=== PATIENT | female | born 1955 | race Caucasian/White ===

== ENCOUNTER 2020-09-07 13:00 | Observation (INO) | payer MEDICARE ==
[~2020-09-07] VITALS: Ht 170.2 cm; Wt 68.7 kg
[2020-09-07] MEDS ORDERED: AMIODARONE 150MG/3ML INJ (J0282) ONE (13:02)
[2020-09-07] MEDS ORDERED: hormone replacement PO (13:08)
[2020-09-07] MEDS ORDERED: hydrALAZINE 20MG/ML 1ML VIAL (J0360 PER 20MG) IV STA (13:22)
--- NOTE | 2020-09-07 13:22 | REP ---
INDICATION: CHEST PAIN. COMPARISON: None. TECHNIQUE: SINGLE PORTABLE AP VIEW OF THE CHEST WAS PERFORMED. FINDINGS: THERE IS NO ACUTE INFILTRATE OR PULMONARY EDEMA. LUNGS ARE CLEAR. HEART IS NOT SIGNIFICANTLY ENLARGED. MEDIASTINAL SILHOUETTE IS UNREMARKABLE. THE VISUALIZED OSSEOUS STRUCTURES ARE INTACT. IMPRESSION: NO ACUTE PULMONARY DISEASE. <Electronically signed by Uriel Lemus > 09/07/20 [id number]
[2020-09-07 13:40] LABS: BASO # 0.1 10^3/uL (0.0-0.2); BASO % 1.1 % (0.0-1.0); EOS # 0.1 10^3/uL (0.0-0.5); EOS % 1.7 % (0.0-3.0); HEMATOCRIT 41.5 % (42.0-52.0); LYMPH # 2.1 10^3/uL (1.5-5.0); LYMPH % 44.1 % (24.0-44.0); MEAN CORPUSCULAR HEMOGLOBIN 31.2 pg (27.0-33.0); MEAN CORPUSCULAR HGB CONC 33.7 g/dl (32.0-36.5); MEAN CORPUSCULAR VOLUME 92.4 fl (80.0-96.0); MONO # 0.5 10^3/uL (0.0-0.8); MONO % 10.5 % (0.0-5.0); NEUTROPHILS % 42.4 % (36.0-66.0); PLATELET COUNT, AUTOMATED 192 10^3/uL (150-450); RED BLOOD COUNT 4.49 10^6/uL (4.30-6.10); WHITE BLOOD COUNT 4.7 10^3/uL (4.0-10.0)
[2020-09-07 13:51] LABS: INR 0.93; PROTHROMBIN TIME 12.7 SECONDS (12.5-14.3)
[2020-09-07 13:52] LABS: PARTIAL THROMBOPLASTIN TIME 31.5 SECONDS (24.2-38.5)
[2020-09-07] MEDS ORDERED: PREM0.3T2 PO (14:04)
[2020-09-07 14:10] LABS: ALBUMIN 4.3 GM/DL (3.2-5.2); ALT/SGPT 32 U/L (12-78); BILIRUBIN,DIRECT < 0.1 MG/DL (0.0-0.2); BILIRUBIN,TOTAL 0.4 MG/DL (0.2-1.0); BLOOD UREA NITROGEN 13 MG/DL (7-18); CALCIUM LEVEL 9.4 MG/DL (8.8-10.2); CARBON DIOXIDE LEVEL 32 MEQ/L (21-32); CHLORIDE LEVEL 105 MEQ/L (98-107); CK-MB VALUE MASS 1.7 NG/ML (<3.6); CPK CREATINE PHOSPHOKINASE 129 U/L (39-308); CREATININE FOR GFR 0.82 MG/DL (0.70-1.30); FREE T4 0.83 NG/DL (0.76-1.46); GLOMERULAR FILTRATION RATE > 60.0 (>49); GLUCOSE, FASTING 110 MG/DL (70-100); LIPASE 268 U/L (73-393); MB/CK RELATIVE INDEX 1.32 (< OR =4); POTASSIUM SERUM 3.6 MEQ/L (3.5-5.1); SODIUM LEVEL 141 MEQ/L (136-145); TOTAL PROTEIN 7.4 GM/DL (6.4-8.2); TROPONIN I < 0.02 NG/ML (< 0.10)
[2020-09-07 14:22] LABS: RSV AMPLIFICATION NEGATIVE (NEGATIVE)
[2020-09-07] MEDS ORDERED: ISOVUE-370 76% 100ML VIAL As Ordered ONE (14:38)
[2020-09-07] MEDS ORDERED: LABETALOL 100MG/20ML VIAL IV STA (15:00)
--- NOTE | 2020-09-07 15:07 | REP ---
INDICATION: htn chest pain r/o dissection. COMPARISON: None. TECHNIQUE: CT angiogram chest performed following the intravenous administration of 100 cc of Isovue 370. Sagittal and coronal reconstruction images are performed. FINDINGS: Lungs: Clear, no infiltrate or nodule. Mediastinum: No adenopathy. Pulmonary arteries: No evidence of pulmonary embolism. Sydnee: No adenopathy. Axilla: No adenopathy. Pleura: No effusion. Heart: Not enlarged. Thoracic aorta: No aneurysm or dissection. Upper abdominal structures: There is a small hiatal hernia.. Visualized osseous structures: There are mild degenerative changes of the spine without compression deformity. IMPRESSION: No CT evidence of pulmonary embolism.No infiltrate seen. <Electronically signed by Uriel Lemus > 09/07/20 [id number]
[2020-09-07] MEDS ORDERED: hydrALAZINE 20MG/ML 1ML VIAL (J0360 PER 20MG) IV PRN (15:45)
[2020-09-07] MEDS ORDERED: lisinopriL 5 MG TAB PO ONE (15:45)
--- NOTE | 2020-09-07 16:48 | HPEPDOC ---
[facility] Medical History & Physical Date of Admission Sep 07, 2020 Date of Service: Sep 07, 2020 Attending Physician: Luna Manzanares MD History and Physical CHIEF COMPLAINT: chest pressure HISTORY OF PRESENT ILLNESS: Patient is a 65 y/o F with PMH of HTN, migraine headaches, back pain who presented to [facility] ER with complaint of substernal chest pressure which lasted 23 minutes earlier in the day. According to the patient she was getting ready to go cross-country skiing and had sudden onset of substernal, 5/10 pressure upper chest. It remained constant for approximately 23 minutes. She had associated dizziness and headache with the chest pressure. She denied blurry vision, palpitations, shortness of breath, nausea, vomiting, diaphoresis, recent illnesses, recent stressors. Due to her symptoms she was taken to the emergency room to be further evaluated. The patient has a history of hypertension and several weeks ago was told at her primary care office that they would be monitoring her blood pressures more closely. After her primary care office visit she has been checking her blood pressures at home and they have been running 225947 mmHg. She has not had an opportunity to follow-up with her primary care since then. She is currently not on medications at home and has previously tried lifestyle modifications. In the emergency room her blood pressure ran 826050/99/110 mmHg. Heart rates were 5874, all other vital signs were within normal limits. ECG showed sinus rhythm, incomplete RBBB which says is old (no old ECG to compare to in our system as patient is orginally from [place], [place] Labs were unremarkable. She was given a dose of hydralazine and later labetalol but her blood pressure only came down to 180 mmHg. patient had no continued chest pressure that she get to the ER. Troponin 1 negative, chest x-ray negative, CTA chest negative. Due to persistently elevated blood pressures the patient was admitted for hypertensive urgency, chest pain workup under hospitalist service. REVIEW OF SYSTEMS: CONSTITUTIONAL: Denies lack of energy, unexplained weight gain or weight loss, loss of appetite, fever, night sweats EYES: Denies eye drainage, eye pain, visual changes, dry/irritated eye EARS, NOSE, MOUTH, THROAT: Denies difficulty hearing, ringing in ears, mouth sores, loose teeth, sore throat, facial numbness or pain NECK: Denies swollen glands CARDIOVASCULAR: Denies irregular heartbeat, racing heart, swelling of feet or legs, pain in legs with walking RESPIRATORY: Denies shortness of breath, night sweats, wheezing, sputum production, oxygen at home, coughing up blood, cough lasting > 1 month GASTROINTESTINAL: Denies abdominal pain, constipation, bloody stool, diarrhea, heartburn, nausea, vomiting GENITOURINARY: Denies painful urination, bloody urine, frequent urination, urgency, leaking urine, impotence MUSCULOSKELETAL: Denies joint pain, muscle pain, leg swelling INTEGUMENTARY: Denies rash, itching, new skin lesion, change in existing skin l esion, hair loss or increase, breast changes. NEUROLOGICAL: Denies dizziness, difficulty walking, numbness or tingling PSYCHIATRIC: Denies depression, anxiety, recurrent bad thoughts, mood swings, orss llucinations PAST MEDICAL HISTORY: HTN migraine headaches chronic back pain PAST SURGICAL HISTORY: Varicose vein stripping b/l FAMILY HISTORY: Father: CHF. at 85 y/o Mother: Arthritis. at 93 y/o SOCIAL HISTORY: The patient denies smoking or drug use history. She drinks one glass of wine a night with her meals 45 times a week. She is very active and ambulates independently. She lives with her [facility]. She follows with her primary care and chiropractor regularly. She is a full code. ALLERGIES: Please see below. HOME MEDICATIONS: Please see below. PHYSICAL EXAMINATION: VS: BP 546411/99/110 mmHg. HR 5874, RR18, T 97.9F, 100% on RA CONSTITUTIONAL: No acute distress, resting comfortably, AAO x 3 EYES: PERRLA, EOM intact HENT, MOUTH: Normocephalic, atraumatic, moist mucous membranes NECK: SUPPLE, no JVD, no lymphadenopathy, no carotid bruit CV: Regular rate and rhythm, S1S2 normal, no murmurs/rubs/gallops RESPIRATORY: Clear to auscultation bilaterally, no rales/rhonchi/wheezes GI: BS positive in 4 quadrants, soft, nontender, nondistended, no rebound or guarding, no organomegaly : Deferred MUSCULOSKELETAL: Normal ROM. No cyanosis, clubbing, swelling, joint deformity, extremity edema INTEGUMENTARY: Intact, no rashes, no lesions, no erythema NEUROLOGIC: Cranial Nerves II-XII are intact, no focal deficits PSYCHIATRIC: Mood and affect are normal LABORATORY DATA: Please see below IMAGING: CTA chest: No CT evidence of pulmonary embolism.No infiltrate seen. CXR: No acute CP abnormality ASSESSMENT: 65 y/o F with PMH of HTN, migraine headaches, back pain admitted for hypertensive urgency, chest pain workup. PLAN: Hypertensive urgency -Hx of untreated HTN. On estrogen supplement at home, admits to not eating low s alt diet. -BP systolic s/p hydralazine, labetalol IV in ER 180 mmHg -F/u Renal US, Echocardiogram -Started on low salt diet, lisinopril 5 mg PO daily, hydralazine IV PRN for systolic BP >180 mmHg -Tele Chest pain r/o ACS vs. associated with uncontrolled HTN -Abnormal ECG ;however, trop x 1 neg, chest pain resolved upon arrival to ER -F/u trop x 2 additional labs -Tele Migraine headaches -Small headache currently -Tylenol PRN DVT px -Lovenox DISPOSITION: Admitted under observation status. Plan is discharge home when medically improved. Vital Signs Vital Signs Date Time Temp Pulse Resp B/P (MAP) Pulse Ox O2 Delivery O2 Flow Rate FiO2 09/07/20 15:45 72 171/102 (125) 93 Room Air 09/07/20 13:01 97.9 18 Laboratory Data Labs 24H Laboratory Tests 2 09/07/20 13:24: Prothrombin Time 12.7, Prothromb Time International Ratio 0.93, Activated Partial Thromboplast Time 31.5 09/07/20 13:25: Immature Granulocyte % (Auto) 0.2, Neutrophils (%) (Auto) 42.4, Lymphocytes (%) (Auto) 44.1H, Monocytes (%) (Auto) 10.5H, Eosinophils (%) (Auto) 1.7, Basophils (%) (Auto) 1.1H, Neutrophils # (Auto) 2.0, Lymphocytes # (Auto) 2.1, Monocytes # (Auto) 0.5, Eosinophils # (Auto) 0.1, Basophils # (Auto) 0.1, Nucleated Red Blood Cells % (auto) 0.0, Anion Gap 4L, Glomerular Filtration Rate > 60.0, Calcium Level 9.4, Total Bilirubin 0.4, Direct Bilirubin < 0.1, Aspartate Amino Transf (AST/SGOT) 22, Alanine Aminotransferase (ALT/SGPT) 32, Alkaline Phosphatase 43L, Total Creatine Kinase 129, Creatine Kinase MB 1.7, Creatine Kinase MB Relative Index 1.32, Troponin I < 0.02, Total Protein 7.4, Albumin 4.3, Albumin/Globulin Ratio 1.4, Lipase 268, Thyroid Stimulating Hormone (TSH) 2.340, Free Thyroxine 0.83 09/07/20 13:36: Coronavirus (COVID-19)(PCR) NEGATIVE, Influenza Type A (RT-PCR) NEGATIVE, Influenza Type B (RT-PCR) NEGATIVE, Respiratory Syncytial Virus (PCR) NEGATIVE CBC/BMP Laboratory Tests 09/07/20 13:25 Home Medications Scheduled Estrogen,Con/M-Progest Acet (Prempro 0.3 mg-1.5 mg Tablet) 1 Each Tablet, 0.5 TAB PO QHS Allergies Coded Allergies: No Known Allergies (Unverified , 09/07/20) A-FIB/CHADSVASC A-FIB History Current/History of A-Fib/PAF?: No Age/Risk Factor Scoring CHADSVASC: CHADSVASC Response (Comments) Value Age Risk Factor Age 65-74 years old 1 Gender Risk Factor Female 1 Hx of CHF No 0 Hx of HTN Yes 1 Hx of Stroke/TIA/or VTE No 0 Hx of Diabetes No 0 Hx of Vascular Disease No 0 Total 3 Treatment Treatment ordered: Other Other anticoagulant ordered: enoxaparin Luna Manzanares MD Sep 07, 2020 16:48
[2020-09-07] MEDS ORDERED: ACETAMINOPHEN TAB 650MG DOSE (2X325MG) PO PRN (17:00)
[2020-09-07 17:36] VITALS: BP 180/88
[2020-09-07] MEDS ORDERED: ONDANSETRON 4MG/2ML VIAL IV PRN (18:15)
[2020-09-07] MEDS ORDERED: SLF 3 ML SYR IV PRN (19:00)
[2020-09-07 20:00] VITALS: BP 164/92
--- NOTE | 2020-09-07 20:14 | ECGEPIP ---
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
[2020-09-07] MEDS: SLF 3 ML SYR IV SCH (23:02)
--- NOTE | 2020-09-07 23:57 | REPVR ---
PROCEDURE INFORMATION: Exam: US Retroperitoneal Limited, Kidneys Exam date and time: 09/07/2020 11:01 PM Age: 65 years old Clinical indication: Other: Uncontrolled BP TECHNIQUE: Imaging protocol: Real-time ultrasound of the retroperitoneum with image documentation. Examination was focused on the kidneys. COMPARISON: No relevant prior studies available. FINDINGS: Right kidney: The right kidney measures 10 cm in length by 4.8 cm in AP dimension and there is no evidence of hydronephrosis. Left kidney: The left kidney measures 10.5 cm in length by 5 cm in AP dimension and there is no evidence of hydronephrosis. Other findings: Cortex of both kidneys appears preserved. IMPRESSION: Normal appearing kidneys. Electronically signed by: Steve Reyes On 09/07/2020 23:57:19 PM
[2020-09-08] VITALS (10 sets, daily range): BP systolic 129–190; BP diastolic 68–110
[2020-09-08] MEDS: SLF 3 ML SYR IV SCH ×3 (04:18→22:39)
[2020-09-08 05:28] LABS: HEMATOCRIT 39.3 % (36.0-47.0); HEMOGLOBIN 13.3 g/dl (12.0-15.5); MEAN CORPUSCULAR HEMOGLOBIN 31.1 pg (27.0-33.0); MEAN CORPUSCULAR HGB CONC 33.8 g/dl (32.0-36.5); PLATELET COUNT, AUTOMATED 181 10^3/uL (150-450); RED BLOOD COUNT 4.27 10^6/uL (4.00-5.40); WHITE BLOOD COUNT 4.8 10^3/uL (4.0-10.0)
[2020-09-08 05:55] LABS: ALBUMIN 3.7 GM/DL (3.2-5.2); ALT/SGPT 28 U/L (12-78); BILIRUBIN,TOTAL 0.5 MG/DL (0.2-1.0); BLOOD UREA NITROGEN 14 MG/DL (7-18); CALCIUM LEVEL 8.2 MG/DL (8.8-10.2); CARBON DIOXIDE LEVEL 27 MEQ/L (21-32); CHLORIDE LEVEL 104 MEQ/L (98-107); CREATININE FOR GFR 0.77 MG/DL (0.55-1.30); GLOMERULAR FILTRATION RATE > 60.0 (>45); GLUCOSE, FASTING 92 MG/DL (70-100); POTASSIUM SERUM 2.8 MEQ/L (3.5-5.1); SODIUM LEVEL 140 MEQ/L (136-145); TOTAL PROTEIN 6.6 GM/DL (6.4-8.2)
[2020-09-08] MEDS ORDERED: KCL 10MEQ/100ML SWI (KRUN) 10 MEQ in IV 1 EA IV STA (06:03)
[2020-09-08] MEDS ORDERED: POTASSIUM CHLORIDE 10 MEQ SR TABLET PO ONE ×3 (06:15→10:00)
[2020-09-08] MEDS ORDERED: KCL 10MEQ/100ML SWI (KRUN) 10 MEQ in IV 1 EA IV SCH (06:30)
[2020-09-08] MEDS ORDERED: MIDAZOLAM INJ 2MG/2ML VIAL (J2250 PER 1MG) As Ordered ONE (06:43)
[2020-09-08] MEDS ORDERED: CALCIUM GLUCONATE 1,000MG/10ML VIAL (100MG/ML) (J0610) As Ordered ONE (06:51)
[2020-09-08 07:02] LABS: MAGNESIUM LEVEL 2.3 MG/DL (1.8-2.4); PHOSPHORUS LEVEL 3.9 MG/DL (2.5-4.9)
--- NOTE | 2020-09-08 07:32 | IPNPDOC ---
Subjective Date Seen The patient was seen on 09/08/20. Subjective Chief Complaint/HPI [facility] was called around 6:30 this morning. Patient was being given IV potassium and went into asystole. On arrival, heart rate was in the 40s. Patient was not feeling well, but could not verbalize why. Denied chest pain, but reported pain from the IV site. Patient was initially paced to achieve HR of 60. When off pacer, patient's HR dropped. Held IV potassium. Ordered 0.5 mg of atropine. Was able to come off of pacer with HR of 62. EKG demonstrated sinus rhythm with prolonged qTC of 511. Contacted cardiology and spoke with Dr. Montiel. Suspecting vasovagal from IV potassium Recommended no more IV potassium and continue with PO potassium. I spoke with the day time attending, and the day time attending is aware. Assessment /Plan Plan/VTE VTE Prophylaxis Ordered?: Yes Plan Asystole/Bradycardia -May have been secondary to IV potassium -Still need potassium. Continue giving PO potassium and following BMP throughout day -Keep pacer pads and IV atropin 0.5 at hand in care she goes into asystole/bradycardia qTC prolongation -Secondary to hypokalemia -Continue giving PO potassium. VS, I&O, 24H, [facility] Vital Signs/I&O Vital Signs Date Time Temp Pulse Resp B/P (MAP) Pulse Ox O2 Delivery O2 Flow Rate FiO2 09/08/20 04:00 98.9 62 18 138/84 (102) 96 Room Air I&O- Last 24 Hours up to 6 AM 09/08/20 06:00 Intake Total 0 ml Output Total 1800 ml Balance -1800 ml Laboratory Data 24H LABS Laboratory Tests 2 09/07/20 13:24: Prothrombin Time 12.7, Prothromb Time International Ratio 0.93, Activated Partial Thromboplast Time 31.5 09/07/20 13:25: Immature Granulocyte % (Auto) 0.2, Neutrophils (%) (Auto) 42.4, Lymphocytes (%) (Auto) 44.1H, Monocytes (%) (Auto) 10.5H, Eosinophils (%) (Auto) 1.7, Basophils (%) (Auto) 1.1H, Neutrophils # (Auto) 2.0, Lymphocytes # (Auto) 2.1, Monocytes # (Auto) 0.5, Eosinophils # (Auto) 0.1, Basophils # (Auto) 0.1, Nucleated Red Blood Cells % (auto) 0.0, Anion Gap 4L, Glomerular Filtration Rate > 60.0, Calcium Level 9.4, Total Bilirubin 0.4, Direct Bilirubin < 0.1, Aspartate Amino Transf (AST/SGOT) 22, Alanine Aminotransferase (ALT/SGPT) 32, Alkaline Portillo sphatase 43L, Total Creatine Kinase 129, Creatine Kinase MB 1.7, Creatine Kinase MB Relative Index 1.32, Troponin I < 0.02, Total Protein 7.4, Albumin 4.3, Albumin/Globulin Ratio 1.4, Lipase 268, Thyroid Stimulating Hormone (TSH) 2.340, Free Thyroxine 0.83 09/07/20 13:36: Coronavirus (COVID-19)(PCR) NEGATIVE, Influenza Type A (RT-PCR) NEGATIVE, Influenza Type B (RT-PCR) NEGATIVE, Respiratory Syncytial Virus (PCR) NEGATIVE 09/07/20 17:42: Troponin I < 0.02 09/07/20 21:23: Troponin I < 0.02 09/08/20 05:06: Nucleated Red Blood Cells % (auto) 0.0, Anion Gap 9, Glomerular Filtration Rate > 60.0, Calcium Level 8.2L, Phosphorus Level 3.9, Magnesium Level 2.3, Total Bilirubin 0.5, Aspartate Amino Transf (AST/SGOT) 19, Alanine Aminotransferase (ALT/SGPT) 28, Alkaline Phosphatase 35L, Total Protein 6.6, Albumin 3.7, Alb umin/Globulin Ratio 1.3 09/08/20 06:48: CBC/BMP Laboratory Tests 09/07/20 13:25 09/08/20 05:06 MARISSA ARMENTA DO Sep 08, 2020 07:32
[2020-09-08 07:34] LABS: CK-MB VALUE MASS 3.4 NG/ML (<3.6); CPK CREATINE PHOSPHOKINASE 204 U/L (26-192); MB/CK RELATIVE INDEX 1.67 (< OR =4); TROPONIN I < 0.02 NG/ML (< 0.10)
[2020-09-08] MEDS: lisinopriL 5 MG TAB PO SCH (09:15)
[2020-09-08] MEDS: ENOXAPARIN 40MG/0.4ML SYRINGE (J1650 PER 10MG) SC SCH (09:16)
[2020-09-08 11:58] LABS: BLOOD UREA NITROGEN 14 MG/DL (7-18); CALCIUM LEVEL 8.9 MG/DL (8.8-10.2); CARBON DIOXIDE LEVEL 24 MEQ/L (21-32); CHLORIDE LEVEL 106 MEQ/L (98-107); CREATININE FOR GFR 0.82 MG/DL (0.55-1.30); GLOMERULAR FILTRATION RATE > 60.0 (>45); GLUCOSE, FASTING 130 MG/DL (70-100); SODIUM LEVEL 140 MEQ/L (136-145)
--- NOTE | 2020-09-08 15:09 | ECHO ---
DATE OF PROCEDURE: 09/08/2020 Age: 65 Gender: Female Height: 170 cm Weight: 70 kg REFERRING PHYSICIAN: Luna Manzanares MD. INDICATION: Chest pain. MEASUREMENTS: IVS 1.0 cm LV 4.6 cm LVPW 0.8 cm LA 3.8 cm Aorta 2.6 cm RV 2.9 Left atrium volume index 23 ml/m2 IVC 1.7 cm Mitral E wave velocity 63 A wave 60 E prime septal 7.2 E prime lateral 7.1 FINDINGS: This study is of good technical quality. Underlying sinus rhythm. Normal LV size with normal LV systolic function, estimated LVEF 60-65%. No segmental wall motion abnormalities are seen. Right ventricle is also normal size and systolic function. Both atria appear normal. All four cardiac valves were reasonably well seen and appear normal. No pericardial effusion is present. Inferior vena cava is of normal size and appropriately collapses with inspiration. Aortic root, aortic arch, and visualized segment of abdominal aorta all appear normal. Doppler interrogation reveals competent aortic valve without stenosis or insufficiency. There is mild mitral and trace tricuspid insufficiency. Calculated pulmonary artery pressure is in the mid to high 20s corresponding to normal values. Pulmonic valve exhibits trace insufficiency. Mitral inflow pattern and tissue Doppler imaging of mitral annulus revealed likely grade 2 diastolic dysfunction even though this may not be completely accurate as the E and A wave are close in velocity. CONCLUSIONS: 1. Study is of good technical quality, underlying sinus rhythm. 2. Normal LV size and systolic function. 3. No hemodynamically significant valvular disease. 4. Normal central venous pressure and normal pulmonary artery pressure. [facility]
--- NOTE | 2020-09-08 15:57 | IPNPDOC ---
Date Seen The patient was seen on 09/08/20. Progress Note SUBJECTIVE: BP improved this AM, trops neg. Believed to have had vasovagal episode this AM s/p IV potassium, max cart called and patient was given atropine for bradycardia. HR improved throughout today, ambulated with assistance without issue. Echo pending. updated. OBJECTIVE PHYSICAL EXAMINATION: VS: Please see below CONSTITUTIONAL: No acute distress, resting comfortably, AAO x 3 EYES: PERRLA, EOM intact HENT, MOUTH: Normocephalic, atraumatic, moist mucous membranes NECK: SUPPLE, no JVD, no lymphadenopathy, no carotid bruit CV: bradycardic , S1S2 normal, no murmurs/rubs/gallops RESPIRATORY: Clear to auscultation bilaterally, no rales/rhonchi/wheezes GI: BS positive in 4 quadrants, soft, nontender, nondistended, no rebound or guarding, no organomegaly : Deferred MUSCULOSKELETAL: Normal ROM. No cyanosis, clubbing, swelling, joint deformity, extremity edema INTEGUMENTARY: Intact, no rashes, no lesions, no erythema NEUROLOGIC: Cranial Nerves II-XII are intact, no focal deficits PSYCHIATRIC: Mood and affect are normal LABORATORY DATA: Please see below IMAGING: Renal US: Normal appearing kidneys CTA chest: No CT evidence of pulmonary embolism. No infiltrate seen. CXR: No acute CP abnormality ASSESSMENT: 65 y/o F with PMH of HTN, migraine headaches, back pain admitted for hypertensive urgency, chest pain workup. PLAN: Vasovagal episode likely 2/2 to IV potassium chloride -Please see max cart note by covering physician -Currently feels much improved, tolerated activity with assistance today -HR at baseline is 60-70. -Monitor on tele, HR Prolonged QTc -F/u repeat ECG later this evening -Not currently on medications that can cause this Uncontrolled HTN, resolved hypertensive urgency -Hx of untreated HTN. On estrogen supplement at home, admits to not eating low salt diet. -Renal US neg -Echocardiogram pending results -C/w low salt diet, lisinopril 5 mg PO daily, hydralazine IV PRN for systolic BP >180 mmHg -Tele Atypical chest pressure likely 2/2 to uncontrolled HTN -Abnormal ECG ;however, trop x 3 neg, chest pain resolved upon arrival to ER -Bp control as above -Tele Migraine headaches -Stable -Tylenol PRN DVT px -Lovenox DISPOSITION: If stay remains uneventful and BP remains stable, plan is discharge home when medically improved. VS, I&O, 24H, [facility] Vital Signs/I&O Vital Signs Date Time Temp Pulse Resp B/P (MAP) Pulse Ox O2 Delivery O2 Flow Rate FiO2 09/08/20 12:00 98.7 61 18 144/82 (102) 97 Room Air 09/08/20 09:06 4.0 I&O- Last 24 Hours up to 6 AM 09/08/20 05:59 Intake Total 0 ml Output Total 1800 ml Balance -1800 ml Laboratory Data 24H LABS Laboratory Tests 2 09/07/20 17:42: Troponin I < 0.02 09/07/20 21:23: Troponin I < 0.02 09/08/20 05:06: Nucleated Red Blood Cells % (auto) 0.0, Anion Gap 9, Glomerular Filtration Rate > 60.0, Calcium Level 8.2L, Phosphorus Level 3.9, Magnesium Level 2.3, Total Bilirubin 0.5, Aspartate Amino Transf (AST/SGOT) 19, Alanine Aminotransferase (ALT/SGPT) 28, Alkaline Phosphatase 35L, Total Protein 6.6, Albumin 3.7, Albumin/Globulin Ratio 1.3 09/08/20 06:39: Bedside Glucose (Misc Panel) 89 09/08/20 06:48: Total Creatine Kinase 204H, Creatine Kinase MB 3.4, Creatine Kinase MB Relative Index 1.67, Troponin I < 0.02 09/08/20 10:45: Anion Gap 10, Glomerular Filtration Rate > 60.0, Calcium Level 8.9 CBC/BMP Laboratory Tests 09/08/20 05:06 09/08/20 10:45 Current Medications Current Medications Medications (Trade) Dose Ordered Sig/Lay Route PRN Reason Start Time Stop Time Status Last Admin Dose Admin Acetaminophen (Tylenol Tab) 650 mg Q6HP PRN PO PAIN / FEVER 09/07/20 17:00 Enoxaparin Sodium (Lovenox) 40 mg DAILY SC 09/08/20 09:00 09/08/20 09:16 Home Med (Med Rec Complete!) ASDIRECTED XX 09/07/20 14:15 09/07/20 14:06 DC Hydralazine HCl (Apresoline) 10 mg Q6HP PRN IV FOR SBP > 180 09/07/20 15:45 Hydralazine HCl (Apresoline) 10 mg STAT STAT IV 09/07/20 13:22 09/07/20 13:23 DC 09/07/20 14:05 Labetalol HCl (Normodyne, Trandate) 10 mg STAT STAT IV 09/07/20 15:00 09/07/20 15:01 DC 09/07/20 15:12 Lisinopril (Prinivil) 5 mg DAILY PO 09/08/20 09:00 09/08/20 09:15 Ondansetron HCl (ZOFRAN INJection) 4 mg Q6HP PRN IV NAUSEA OR VOMITING 09/07/20 18:15 Potassium Chloride 10 meq/ IV Miscellaneous Supplies 100 ml @ 100 mls/hr 0630,0730 IV 09/08/20 06:30 09/08/20 07:10 DC 09/08/20 06:27 Potassium Chloride 10 meq/ IV Miscellaneous Supplies 100 ml @ 100 mls/hr ASDIRECTED STAT IV 09/08/20 06:03 09/08/20 07:02 Cancel Sodium Chloride (Saline Lock Flush) 2 ml ASDIRECTED PRN IV SEE LABEL COMMENTS 09/07/20 19:00 Sodium Chloride (Saline Lock Flush) 2 ml SLF IV 09/07/20 22:00 09/08/20 13:15 Allergies Coded Allergies: potassium chloride (Verified Adverse Reaction, Severe, vagal response/ bradycardia, 09/08/20) IV potassium- Physician doesn't want patient to have any iv potassium due to asystole within minutes of receiving it. Luna Manzanares MD Sep 08, 2020 15:57
[2020-09-08] MEDS ORDERED: ONDANSETRON 4 MG ORAL DISINTEGRATING TAB PO PRN (18:15)
[2020-09-09] VITALS: BP 120/80
[2020-09-09 04:00] VITALS: BP 136/84
[2020-09-09 06:04] LABS: HEMATOCRIT 37.8 % (36.0-47.0); HEMOGLOBIN 12.9 g/dl (12.0-15.5); MEAN CORPUSCULAR HEMOGLOBIN 31.9 pg (27.0-33.0); MEAN CORPUSCULAR HGB CONC 34.1 g/dl (32.0-36.5); MEAN CORPUSCULAR VOLUME 93.3 fl (80.0-96.0); PLATELET COUNT, AUTOMATED 170 10^3/uL (150-450); RED BLOOD COUNT 4.05 10^6/uL (4.00-5.40); WHITE BLOOD COUNT 4.1 10^3/uL (4.0-10.0)
[2020-09-09 06:27] LABS: ALBUMIN 3.4 GM/DL (3.2-5.2); ALT/SGPT 23 U/L (12-78); BILIRUBIN,TOTAL 0.5 MG/DL (0.2-1.0); BLOOD UREA NITROGEN 12 MG/DL (7-18); CALCIUM LEVEL 8.6 MG/DL (8.8-10.2); CARBON DIOXIDE LEVEL 26 MEQ/L (21-32); CHLORIDE LEVEL 106 MEQ/L (98-107); CREATININE FOR GFR 0.71 MG/DL (0.55-1.30); GLOMERULAR FILTRATION RATE > 60.0 (>45); GLUCOSE, FASTING 87 MG/DL (70-100); POTASSIUM SERUM 3.7 MEQ/L (3.5-5.1); SODIUM LEVEL 139 MEQ/L (136-145); TOTAL PROTEIN 6.2 GM/DL (6.4-8.2)
[2020-09-09] MEDS: SLF 3 ML SYR IV SCH (06:45)
[2020-09-09 07:02] VITALS: BP 118/76
[2020-09-09] MEDS ORDERED: LISI-898 PO (07:56)
[2020-09-09] MEDS: ENOXAPARIN 40MG/0.4ML SYRINGE (J1650 PER 10MG) SC SCH (09:00)
[2020-09-09 09:38] VITALS: BP 118/76
[2020-09-09] MEDS: lisinopriL 5 MG TAB PO SCH (09:38)
--- NOTE | 2020-09-09 17:51 | DS.PDOC ---
Discharge Summary General Date of Admission Sep 07, 2020 at 13:01 Date of Discharge 09/09/20 Attending Physician: Luna Manzanares MD Discharge Summary HISTORY OF PRESENT ILLNESS: Patient is a 65 y/o F with PMH of HTN, migraine headaches, back pain who presented to [facility] ER with complaint of substernal chest pressure which lasted 23 minutes earlier in the day. According to the patient she was getting ready to go cross-country skiing and had sudden onset of substernal, 5/10 pressure upper chest. It remained constant for approximately 23 minutes. She had associated dizziness and headache with the chest pressure. She denied blurry vision, palpitations, shortness of breath, nausea, vomiting, diaphoresis, recent illnesses, recent stressors. Due to her symptoms she was taken to the emergency room to be further evaluated. The patient has a history of hypertension and several weeks ago was told at her primary care office that they would be monitoring her blood pressures more closely. After her primary care office visit she has been checking her blood pressures at home and they have been running 910113 mmHg. She has not had an opportunity to follow-up with her primary care since then. She is currently not on medications at home and has previously tried lifestyle modifications. In the emergency room her blood pressure ran 724214/99/110 mmHg. Heart rates were 5874, all other vital signs were within normal limits. ECG showed sinus rhythm, incomplete RBBB which says is old (no old ECG to compare to in our system as patient is orginally from [place], [place] Labs were unremarkable. She was given a dose of hydralazine and later labetalol but her blood pressure only came down to 180 mmHg. patient had no continued chest pressure that she get to the ER. Troponin 1 negative, chest x-ray negative, CTA chest negative. Due to persistently elevated blood pressures the patient was admitted for hypertensive urgency, chest pain workup under hospitalist service. HOSPITAL COURSE: Patient was noted on lisinopril 5 mg by mouth daily which she tolerated well. Her blood pressures improved for the most part; however, she would occasionally spike to the 160s. She did spike to the 190s systolic with an episode of vomiting on 09/08/2020. Early a.m. and 09/08/2020 the patient's was believed to have had a vasovagal episode s/p IV potassium initiation, max cart called and patient was given atropine for bradycardia. HR improved throughout today, ambulated with assistance without issue. Echocardiogram showed 60-65%, no other abnormal findings. By 09/09/2019 when the patient was much improved and had no other abnormal episodes of bradycardia or syncope. She was discharged home with lisinopril for her pressure control and advised to follow closely with her primary care physician. She states she has a follow-up already arranged on 09/10/2020. She is advised that if she should have any increased nausea, headache, shortness of breath, chest pain that she should let someone know immediately and check her blood pressure to ensure that her blood pressure is not severely elevated as it was before. The patient could be having intermittent bouts of hypertension, requiring additional workup outside of the hospital. At the time of discharge she denied chest pain, nausea, vomiting, headache. PAST MEDICAL HISTORY: HTN migraine headaches chronic back pain PAST SURGICAL HISTORY: Varicose vein stripping b/l FAMILY HISTORY: Father: CHF. at 85 y/o Mother: Arthritis. at 93 y/o SOCIAL HISTORY: The patient denies smoking or drug use history. She drinks one glass of wine a night with her meals 45 times a week. She is very active and ambulates independently. She lives with her [facility]. She follows with her primary care and chiropractor regularly. She is a full code. ALLERGIES: Please see below. DISCHARGE MEDICATIONS: Please see below. PHYSICAL EXAMINATION: VS: Please see below CONSTITUTIONAL: No acute distress, resting comfortably, AAO x 3 EYES: PERRLA, EOM intact HENT, MOUTH: Normocephalic, atraumatic, moist mucous membranes NECK: SUPPLE, no JVD, no lymphadenopathy, no carotid bruit CV: bradycardic , S1S2 normal, no murmurs/rubs/gallops RESPIRATORY: Clear to auscultation bilaterally, no rales/rhonchi/wheezes GI: BS positive in 4 quadrants, soft, nontender, nondistended, no rebound or guarding, no organomegaly : Deferred MUSCULOSKELETAL: Normal ROM. No cyanosis, clubbing, swelling, joint deformity, extremity edema INTEGUMENTARY: Intact, no rashes, no lesions, no erythema NEUROLOGIC: Cranial Nerves II-XII are intact, no focal deficits PSYCHIATRIC: Mood and affect are normal LABORATORY DATA: Please see below IMAGING: Echocardiogram: EF 60-65% 1. Study is of good technical quality, underlying sinus rhythm. 2. Normal LV size and systolic function. 3. No hemodynamically significant valvular disease. 4. Normal central venous pressure and normal pulmonary artery pressure. Renal US: Normal appearing kidneys CTA chest: No CT evidence of pulmonary embolism. No infiltrate seen. CXR: No acute CP abnormality ASSESSMENT: 65 y/o F with PMH of HTN, migraine headaches, back pain admitted for hypertensive urgency, chest pain workup. PLAN: Vasovagal episode likely 2/2 to IV potassium chloride -Echo wnl, no events overnight -HR at baseline is 60-70. Prolonged QTc -Repeat ECG wnl -Not currently on medications that can cause this HTN, resolved hypertensive urgency -Hx of untreated HTN. On estrogen supplement at home, admits to not eating low salt diet. -Renal US neg -Echocardiogram above -Advised to c/w low salt diet, lisinopril 5 mg PO daily. She is advised to f/u with PCP on 09/10/20 and will need close monitoring by their office. -if high BP intermittently present despite medications, will likey need additional workup. Atypical chest pressure likely 2/2 to uncontrolled HTN -Abnormal ECG ;however, trop x 3 neg, chest pain resolved upon arrival to ER -Bp control as above Migraine headaches -Stable -Tylenol PRN DISPOSITION: Discharged home today in improved condition. F/u with PCP TIME SPENT ON DISCHARGE: 35 minutes. Vital Signs/I&Os Vital Signs Date Time Temp Pulse Resp B/P (MAP) Pulse Ox O2 Delivery O2 Flow Rate FiO2 09/09/20 09:38 118/76 09/09/20 07:02 97.7 59 18 97 Room Air 09/08/20 09:06 4.0 I&O- Last 24 Hours up to 6 AM 09/09/20 06:00 Intake Total 2160 ml Output Total 3300 ml Balance -1140 ml Laboratory Data Labs 24H Laboratory Tests 2 09/09/20 05:23: Nucleated Red Blood Cells % (auto) 0.0, Anion Gap 7L, Glomerular Filtration Rate > 60.0, Calcium Level 8.6L, Total Bilirubin 0.5, Aspartate Amino Transf (AST/SGOT) 19, Alanine Aminotransferase (ALT/SGPT) 23, Alkaline Phosphatase 33L, Total Protein 6.2L, Albumin 3.4, Albumin/Globulin Ratio 1.2 CBC/BMP Laboratory Tests 09/09/20 05:23 Discharge Medications Scheduled Estrogen,Con/M-Progest Acet (Prempro 0.3 mg-1.5 mg Tablet) 1 Each Tablet, 0.5 TAB PO QHS, (Reported) Lisinopril (Lisinopril) 5 Mg Tablet, 5 MG PO DAILY Allergies Coded Allergies: potassium chloride (Verified Adverse Reaction, Severe, vagal response/ bradycardia, 09/08/20) IV potassium- Physician doesn't want patient to have any iv potassium due to asystole within minutes of receiving it. Luna Manzanares MD Sep 09, 2020 17:51
--- NOTE | 2020-09-10 08:19 | ECGEPIP ---
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
--- NOTE | 2020-09-10 08:26 | ECGEPIP ---
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
== END 2020-09-09 12:55 | disposition home or self-care (01) ==
LOC: M ED 13:00 → EDSEX 13:00 → M ED INP 13:01 → M PCU 17:25
PROVIDERS: ADMIT Internal Medicine; ATTEND Internal Medicine
DX: I16.0 Hypertensive urgency (principal); R07.89 Other chest pain; I10 Essential (primary) hypertension; G43.909 Migraine, unspecified, not intractable, without status migrainosus; Z79.899 Other long term (current) drug therapy
CPT/HCPCS: 36415; 71045; 71275; 76775; 80053; 80076; 82550; 82553; 83690; 83735; 84100; 84439; 84443; 84484; 85025; 85027; 85610; 85730; 87631; 93005; 93041; 93306; 94760; 96374; 96375; 99285; G0378; J0282; J0360; J1650; Q0162; Q9967